=== PATIENT | male | born 1985 | race Two or more races ===

== ENCOUNTER 2025-02-13 02:10 | Emergency (ER) | payer SELFPAY ==
[~2025-02-13] VITALS: Ht 182.9 cm; Wt 105.7 kg
[2025-02-13 02:43] LABS: BASOPHILS ABSOLUTE AUTO 0.06 K/mm3 (0.00-0.23); BASOPHILS PERCENT AUTO 1 % (0-2); EOSINOPHILS ABSOLUTE AUTO 0.10 K/mm3 (0.00-0.68); EOSINOPHILS PERCENT AUTO 1 % (0-6); Hematocrit 42.0 % (37.0-53.0); Hemoglobin 14.5 g/dL (13.5-17.5); IMMATURE GRAN ABSOLUTE AUTO 0.04 K/mm3 (0.00-0.10); IMMATURE GRAN PERCENT AUTO 0 % (0-1); LYMPHOCYTES ABSOLUTE AUTO 1.62 K/mm3 (0.84-5.20); LYMPHOCYTES PERCENT AUTO 17 % (21-46); MONOCYTES ABSOLUTE AUTO 0.67 K/mm3 (0.16-1.47); MONOCYTES PERCENT AUTO 7 % (4-13); Mean Corpuscular HGB Conc 34.5 g/dL (31.5-36.5); Mean Corpuscular Volume 89 fL (80-100); NEUTROPHILS ABSOLUTE AUTO 7.00 K/mm3 (1.96-9.15); NEUTROPHILS PERCENT AUTO 74 % (41-73); NRBC ABSOLUTE 0.00 K/mm3 (0.00-0.02); NRBC Auto 0.0 /100 WBC (0.0-0.2); Platelet Count 249 K/mm3 (150-400); RDW Coefficient Variation 12.3 % (11.7-14.2); RDW Standard Deviation 40.1 fL (35.1-46.3)
[2025-02-13 02:55] LABS: Alanine Aminotransfer (ALT/SGP 127.0 U/L (12-78); Albumin, Blood 3.9 g/dL (3.4-5.0); Albumin/Globulin Ratio 1.1 (0.8-1.8); Anion Gap 13.0 mmol/L (3-11); Aspartate Aminotrans (AST/SGOT 58.0 U/L (12-37); Bilirubin, Total 0.3 mg/dL (0.1-1.0); Blood Urea Nitrogen 16.0 mg/dL (8-24); CO2, Blood 21.0 mmol/L (21-32); Calcium, Blood 8.0 mg/dL (8.5-10.1); Chloride, Blood 106.0 mmol/L (98-108); Creatinine, Blood 0.78 mg/dL (0.60-1.20); Globulin, Blood 3.4 g/dL (2.2-4.0); Glucose, Blood 134.0 mg/dL (70-99); Potassium, Blood 3.6 mmol/L (3.5-5.5); Sodium, Blood 136.0 mmol/L (136-145); Total Protein, Blood 7.3 g/dL (6.4-8.2)
[2025-02-13] MEDS ORDERED: Lidocaine 2% Viscous Soln 15 ML UDC PO ONE (03:50)
[2025-02-13] MEDS ORDERED: NS 1,000 ML IV SCH (05:50)
[2025-02-13] MEDS ORDERED: Ketorolac Tromethamine 15mg Vial IV ONE (05:50)
[2025-02-13] MEDS ORDERED: NAPR500 PO (08:13)
[2025-02-13] MEDS ORDERED: PRED20 PO (08:13)
== END 2025-02-13 08:22 | disposition home or self-care (01) ==
LOC: ER 02:10
PROVIDERS: Emergency Medicine
DX: R07.9 Chest pain, unspecified (principal); M54.12 Radiculopathy, cervical region; E86.0 Dehydration; I51.7 Cardiomegaly; Z59.89 Other problems related to housing and economic circumstances; F17.200 Nicotine dependence, unspecified, uncomplicated
CPT/HCPCS: 71046; 71260; 76705; 80053; 83690; 84484; 85025; 93005; 93010; 96374; 99285-25; A9270; J1885; J7030; Q9967